=== PATIENT | female | born 1995 | race Caucasian/White ===

== ENCOUNTER → 2018-05-14 | Outpatient (CLI) | payer OTHER ==
--- NOTE | 2018-05-14 15:31 | US ---
EXAMINATION TYPE: US kidneys/renal and bladder DATE OF EXAM: 05/14/2018 COMPARISON: NONE CLINICAL HISTORY: N30.01 Acute cystitis with hematuria. Recent UTI. Pelvic pressure EXAM MEASUREMENTS: Right Kidney: 9.4 x 3.7 x 4.2 cm Left Kidney: 9.7 x 4.7 x 4.2 cm Right Kidney: no evidence of hydronephrosis Left Kidney: no evidence of hydronephrosis Bladder: appears wnl Bilateral Jets seen: yes There is no evidence for hydronephrosis at this point in time. No nephrolithiasis is seen. No mandy s are identified. The urinary bladder is anechoic. Bilateral ureteral jets are seen. IMPRESSION: Renal sizes as described.
--- NOTE | 2018-05-14 15:32 | US ---
EXAMINATION TYPE: US pelvis complete transvag DATE OF EXAM: 05/14/2018 COMPARISON: NONE CLINICAL HISTORY: N30.01 Acute cystitis with hematuria. Recent UTI, pelvic pressure TECHNIQUE: Transvaginal (TV) and Transabdominal (TA) . Transabdominal sonographic images of the pel vis were acquired. Transvaginal sonographic images were medically necessary to better assess the fol lowing anatomy: ovaries Date of LMP: 05/09/18 EXAM MEASUREMENTS: Uterus: 7.3 x 3.6 x 4.1 cm Endometrial Stripe: 0.4 cm Right Ovary: 3.9 x 2.6 x 2.2 cm Left Ovary: 3.5 x 1.9 x 2.5 cm 1. Uterus: Retroverted Nabothian cysts 2. Endometrium: wnl 3. Right Ovary: multiple follicles 4. Left Ovary: multiple follicles 5. Bilateral Adnexa: wnl 6. Posterior cul-de-sac: wnl IMPRESSION: Unremarkable pelvic ultrasound.
== END | disposition home or self-care (01) ==
LOC: RADUSWWP 13:05
PROVIDERS: ATTEND Family Medicine
DX: N30.01 Acute cystitis with hematuria (principal)
CPT/HCPCS: 76770; 76830; 76856

== ENCOUNTER 2018-08-18 00:52 | Emergency (ER) | payer OTHER ==
[2018-08-18 01:46] LABS: Appearance,Urine Clear (Clear); Bilirubin,Urine Negative (Negative); Blood,Urine Negative (Negative); Color,Urine Light Yellow; Glucose,Urine (UA) Negative (Negative); Ketones,Urine Negative (Negative); Leukocyte Esterase,Urine Negative (Negative); Nitrite,Urine Negative (Negative); PH, Urine 6.5 (5.0-8.0); Protein,Urine Negative (Negative); Specific Gravity,Urine 1.004 (1.001-1.035); Urobilinogen,Urine <2.0 mg/dL (<2.0)
[2018-08-18] MEDS ORDERED: FLUCONAZOLE 150 MG TAB PO STA (04:15)
--- NOTE | 2018-08-18 04:18 | ED ---
General Adult HPI - General Chief complaint: Urogenital Stated complaint: Pelvic Pain Time Seen by Provider: 08/18/18 03:18 Source: patient Mode of arrival: ambulatory Limitations: no limitations - History of Present Illness Initial comments: Dictation was produced using [employer] dictation software. please excuse any grammatical, word or spelling errors. Chief complaint: Vaginal pain History of present illness: 22-year-old female presents with vaginal discharge and vaginal pain. Patient 22-year-old female. She states she is had multiple weeks of vaginal discharge and vaginal pain. She is told that she probably has yeast. Patient states that her mother could smell the yeast on her. Patient doesn't have an established QUALITY CONTROL SPECIALIST. No fever, chills or night sweats. The ROS documented in this emergency department record has been reviewed and confirmed by me. Those systems with pertinent positive or negative responses have been documented in the HPI. All other systems are other negative and/or noncontributory. PHYSICAL EXAM: General Impression: Alert and oriented x3, not in acute distress HEENT: Normocephalic atraumatic, extra-ocular movements intact, pupils equal and reactive to light bilaterally, mucous membranes moist. Cardiovascular: Heart regular rate and rhythm, S1&S2 audible, no murmurs, rubs o r gallops Chest: Lungs clear to auscultation bilaterally, no rhonchi, no wheeze, no rales Abdomen: Bowel sounds present, abdomen soft, non-tender, non-distended, no organomegaly Musculoskeletal: Pulses present and equal in all extremities, no peripheral edema Motor: Power 5/5 bilaterally, no focal deficits noted Neurological: CN II-XII grossly intact, no focal motor or sensory deficits noted Skin: Intact with no visualized rashes Psych: Normal affect and mood ED course: 22 yo female with chief complaint of vaginal discharge vaginal pain. Patient has otherwise had good vaginal care. She doesn't douche and use suppositories. All signs upon arrival are within acceptable limits. Patient refusing pelvic exam. She decision-making was plan the patient. Patient given 1 dose of that and for treatment of these. HPI is suggestive of vaginitis. Urinalysis negative. Urine is negative. Patient given prescription for Flagyl to take for BV if she feels sober symptoms aren't improving. Patient understandable agreeable to plan. She is told to follow-up with PCP for outpatient referral to QUALITY CONTROL SPECIALIST. - Related Data Previous Rx's Medication Instructions Recorded metroNIDAZOLE [Flagyl] 500 mg PO Q12H #14 tab 08/18/18 Allergies Allergy/AdvReac Type Severity Reaction Status Date / Time No Known Allergies Allergy Verified 08/18/18 01:27 Review of Systems ROS Statement: Those systems with pertinent positive or pertinent negative responses have been documented in the HPI. ROS Other: All systems not noted in ROS Statement are negative. Past Medical History Past Medical History: No Reported History History of Any Multi-Drug Resistant Organisms: None Reported Past Surgical History: Tonsillectomy Past Psychological History: Anxiety, Depression Smoking Status: Never smoker Past Alcohol Use History: None Reported Past Drug Use History: None Reported General Exam Limitations: no limitations Course Vital Signs 08/18/18 01:18 Temperature 98.4 F Pulse Rate 87 Respiratory 17 Rate Blood Pressure 132/88 O2 Sat by Pulse 97 Oximetry Medical Decision Making - Lab Data Lab Results 08/18/18 08/18/18 Range/Units 01:30 01:30 Urine Color Light Yellow Urine Appearance Clear (Clear) Urine pH 6.5 (5.0-8.0) Ur Specific [place] 1.004 (1.001-1.035) Urine Protein Negative (Negative) Urine Glucose (UA) Negative (Negative) Urine Ketones Negative (Negative) Urine Blood Negative (Negative) Urine Nitrite Negative (Negative) Urine Bilirubin Negative (Negative) Urine Urobilinogen <2.0 (<2.0) mg/dL Ur Leukocyte Esterase Negative (Negative) Urine HCG, Qual Not Detected (Not Detectd) Disposition Clinical Impression: Pelvic pain Disposition: HOME SELF-CARE Condition: Good Instructions (If sedation given, give patient instructions): Vaginitis (ED) Prescriptions: metroNIDAZOLE [Flagyl] 500 mg PO Q12H #14 tab Is patient prescribed a controlled substance at d/c from ED?: No Referrals: Chan Koch DO [Primary Care Provider] - 1-2 days Time of Disposition: 04:17
[2018-08-18 04:25] VITALS: BP 137/91; PULSE 83; RESP 16; TEMP 98.2
== END 2018-08-18 04:23 ==
LOC: EC 00:52
DX: R10.2 Pelvic and perineal pain (principal); N89.8 Other specified noninflammatory disorders of vagina
CPT/HCPCS: 81003; 81025; 99284

== ENCOUNTER 2018-09-05 08:17 | Emergency (ER) | payer OTHER ==
[2018-09-05 08:23] VITALS: BP 159/88; PULSE 112; RESP 20; TEMP 98
--- NOTE | 2018-09-05 08:42 | ED ---
Female Urogenital HPI - General Chief complaint: Urogenital Stated complaint: pelvic pain Time Seen by Provider: 09/05/18 08:23 Source: patient, RN notes reviewed Mode of arrival: ambulatory Limitations: no limitations - History of Present Illness Initial comments: 23-year-old female presents emergency Department with chief complaint of vaginal irritation. Patient states she was seen here a few weeks ago and was given Flagyl though she states that she felt this was related to a yeast infection and states that she just took the Diflucan. She did have some relief. She also states that she only took 2 tablets of the Flagyl. Patient states is minimal discharge she does complains more irritation. Patient states she is not sexually active. She has no concern for STDs. Patient has no dysuria no hematuria. Patient had a clean urinalysis emergency department and her PCPs recently. Patient cannot follow-up with BUSINESS SUPPORT LIAISON at this time. Patient states that she tried some lube and states that that helped. - Related Data Home Medications Medication Instructions Recorded Confirmed Cholecalciferol (Vitamin D3) 2,000 unit PO DAILY 09/05/18 09/05/18 [Vitamin D3] L.acidoph,Paracasei, B.lactis 1 cap PO DAILY 09/05/18 09/05/18 [Probiotic] Multivitamins, Thera [Multivitamin 1 tab PO DAILY 09/05/18 09/05/18 (formulary)] [place]-3 Fatty Acids/Fish Oil [Fish 1 cap PO DAILY 09/05/18 09/05/18 Oil 1,000 mg Softgel] Vitamin C/Biotin [Hair, Skin and 1 tab PO DAILY 09/05/18 09/05/18 Nails] Previous Rx's Medication Instructions Recorded metroNIDAZOLE [Flagyl] 500 mg PO TID #21 tab 09/05/18 Allergies Allergy/AdvReac Type Severity Reaction Status Date / Time No Known Allergies Allergy Verified 09/05/18 08:40 Review of Systems ROS Statement: Those systems with pertinent positive or pertinent negative responses have been documented in the HPI. ROS Other: All systems not noted in ROS Statement are negative. Past Medical History Past Medical History: No Reported History History of Any Multi-Drug Resistant Organisms: None Reported Past Surgical History: Tonsillectomy Past Psychological History: Anxiety, Depression Smoking Status: Never smoker Past Alcohol Use History: None Reported Past Drug Use History: None Reported General Exam Limitations: no limitations General appearance: alert, in no apparent distress Head exam: Present: atraumatic, normocephalic, normal inspection Respiratory exam: Present: normal lung sounds bilaterally. Absent: respiratory distress, wheezes, rales, rhonchi, stridor Cardiovascular Exam: Present: regular rate, normal rhythm, normal heart sounds. Absent: systolic murmur, diastolic murmur, rubs, gallop, clicks GI/Abdominal exam: Present: soft, normal bowel sounds. Absent: distended, tenderness, guarding, rebound, rigid External exam: Present: normal external exam Speculum exam: Present: vaginal discharge, cervical discharge, other (Mild erythema of the cervix) Skin exam: Present: warm, dry, intact, normal color. Absent: rash Course Vital Signs 09/05/18 08:20 Temperature 98 F Pulse Rate 112 H Respiratory 20 Rate Blood Pressure 159/88 O2 Sat by Pulse 99 Oximetry Medical Decision Making - Medical Decision Making 23-year-old female presented for vaginal irritation and discharge. Patient had apparently in April which was negative at that time. She has not been sexually active since. Patient is noted have some discharge and mild erythema. Patient did have gonorrhea, chlamydia, Trichomonas and general culture testing. Patient will be given treated for bacterial vaginosis at this time. Disposition Clinical Impression: Bacterial vaginosis Disposition: HOME SELF-CARE Condition: Stable Instructions (If sedation given, give patient instructions): Bacterial Vaginosis (ED) Additional Instructions: Please return to the Emergency Department if symptoms worsen or any other concerns. Prescriptions: metroNIDAZOLE [Flagyl] 500 mg PO TID #21 tab Is patient prescribed a controlled substance at d/c from ED?: No Referrals: Chan Koch DO [Primary Care Provider] - 1-2 days Time of Disposition: 09:15
[2018-09-06 16:03] LABS: N. gonorrhoeae,PCR Negative (Neg,Equiv); Neisseria Source Cervix
[2018-09-06 16:04] LABS: C. trachomatis,PCR Negative (Neg,Equiv); Chlamydia trachomatis Source Cervix
== END 2018-09-05 09:18 | disposition home or self-care (01) ==
LOC: EC 08:17
DX: N76.0 Acute vaginitis (principal); Z79.899 Other long term (current) drug therapy
CPT/HCPCS: 87070; 87205; 87491; 87591; 87808; 99284

== ENCOUNTER 2018-09-18 18:08 | Emergency (ER) | payer OTHER ==
[2018-09-18 18:34] VITALS: TEMP 98.5
[2018-09-18 20:36] LABS: Appearance,Urine Clear (Clear); Bacteria,Urine Rare /hpf; Bilirubin,Urine Negative (Negative); Blood,Urine Trace (Negative); Color,Urine Light Yellow; Glucose,Urine (UA) Negative (Negative); Ketones,Urine Negative (Negative); Leukocyte Esterase,Urine Negative (Negative); Mucus,Urine Rare /hpf; Nitrite,Urine Negative (Negative); PH, Urine 5.5 (5.0-8.0); Protein,Urine Negative (Negative); RBC,Urine 2 /hpf (0-5); Specific Gravity,Urine 1.009 (1.001-1.035); Urobilinogen,Urine <2.0 mg/dL (<2.0); WBC,Urine 1 /hpf (0-5)
[2018-09-18 20:40] LABS: Amphetamine Screen,Urine Not Detected (NotDetected); Barbiturate Screen,Urine Not Detected (NotDetected); Benzodiazepines Screen,Urine Not Detected (NotDetected); Cocaine Screen,Urine Not Detected (NotDetected); Methadone Screen, Urine Not Detected (NotDetected); Opiate Screen,Urine Not Detected (NotDetected); Oxycodone Screen, Urine Not Detected (NotDetected); Phencyclidine Screen,Urine Not Detected (NotDetected); Tricyclic Antidepressant,Urine Not Detected (NotDetected); Urn Cannabinoid Scrn Not Detected (NotDetected)
--- NOTE | 2018-09-18 23:01 | ED ---
Female Urogenital HPI - General Source: patient Mode of arrival: ambulatory Limitations: no limitations - History of Present Illness Last Menstrual Period: 08/29/18 <Berenice Jefferson - Last Filed: 09/19/18 03:19> <Justin Armando - Last Filed: 09/19/18 07:49> - General Chief complaint: Urogenital Stated complaint: Pelvic pain Time Seen by Provider: 09/18/18 19:17 - History of Present Illness Initial comments: 23-year-old female patient presents to the emergency department today for evaluation of inflammation to her genitalia and vaginal discharge. Patient states that she has had symptoms since March. Patient states she has been on multiple rounds of medication for bacterial vaginosis but does not improve her symptoms. Patient states that she has seen both her primary care physician has been evaluated in the emergency department for this. Patient denies being sexually active ever. Patient states that she does have some mild lower abdominal discomfort with this. She denies fever or chills. Denies any hematuria, dysuria, urinary frequency, urinary urgency. Patient does admit that she has had suicidal thoughts and feels that this pain and discomfort is ruining her life. Patient states she did write a suicide note on Sunday but was unable to go through with it. Patient states that she has been having increased depression and anxiety related to her symptoms. Patient denies any recent rash, shortness breath, chest pain, nausea, vomiting, diarrhea, constipation, back pain, numbness, tingling, dizziness, weakness, headache, visual changes, or any other complaints. (Berenice Jefferson) - Related Data Home Medications Medication Instructions Recorded Confirmed Cholecalciferol (Vitamin D3) 2,000 unit PO DAILY 09/05/18 09/18/18 [Vitamin D3] L.acidoph,Paracasei, B.lactis 1 cap PO DAILY 09/05/18 09/18/18 [Probiotic] Multivitamins, Thera [Multivitamin 1 tab PO DAILY 09/05/18 09/18/18 (formulary)] [place]-3 Fatty Acids/Fish Oil [Fish 1 cap PO DAILY 09/05/18 09/18/18 Oil 1,000 mg Softgel] Vitamin C/Biotin [Hair, Skin and 1 tab PO DAILY 09/05/18 09/18/18 Nails] Clindamycin HCl [Cleocin] 300 mg PO BID 09/18/18 09/18/18 Vilazodone HCl [Viibryd] 1 tab PO DAILY 09/18/18 09/18/18 Allergies Allergy/AdvReac Type Severity Reaction Status Date / Time No Known Allergies Allergy Verified 09/18/18 19:33 Review of Systems ROS Other: All systems not noted in ROS Statement are negative. <Berenice Jefferson - Last Filed: 09/19/18 03:19> ROS Other: All systems not noted in ROS Statement are negative. <Justin Armando - Last Filed: 09/19/18 07:49> ROS Statement: Those systems with pertinent positive or pertinent negative responses have been documented in the HPI. Past Medical History Past Medical History: No Reported History History of Any Multi-Drug Resistant Organisms: None Reported Past Surgical History: Tonsillectomy Past Psychological History: Anxiety, Depression Smoking Status: Never smoker Past Alcohol Use History: None Reported Past Drug Use History: None Reported <Berenice Jefferson - Last Filed: 09/19/18 03:19> General Exam Limitations: no limitations General appearance: alert, in no apparent distress, other (Physical well- developed, well-nourished adult female patient in no acute distress. Vital signs upon presentation are temperature 98.5F, pulse 102, respirations 16, blood pressure 123/79, pulse ox 98% on room air.) Eye exam: Present: normal appearance, PERRL, EOMI. Absent: scleral icterus, conjunctival injection, periorbital swelling ENT exam: Present: normal exam, normal oropharynx, mucous membranes moist Respiratory exam: Present: normal lung sounds bilaterally. Absent: respiratory distress, wheezes, rales, rhonchi, stridor Cardiovascular Exam: Present: regular rate, normal rhythm, normal heart sounds. Absent: systolic murmur, diastolic murmur, rubs, gallop, clicks GI/Abdominal exam: Present: soft, normal bowel sounds. Absent: distended, tenderness, guarding, rebound, rigid External exam: Present: normal external exam Speculum exam: Present: vaginal discharge (Small amount of white vaginal discharge). Absent: normal speculum exam, cervical discharge, vaginal bleeding By manual exam: Present: normal by manual exam Back exam: Present: normal inspection. Absent: CVA tenderness (R), CVA tenderness (L) Neurological exam: Present: alert, oriented X3, CN II-XII intact Psychiatric exam: Present: normal affect, normal mood Skin exam: Present: warm, dry, intact, normal color. Absent: rash <Berenice Jefferson - Last Filed: 09/19/18 03:19> Course Vital Signs 09/18/18 09/19/18 18:30 04:00 Temperature 98.5 F Pulse Rate 102 H 92 Respiratory 16 20 Rate Blood Pressure 123/79 128/74 O2 Sat by Pulse 98 98 Oximetry Medical Decision Making - Lab Data Result diagrams: 09/19/18 02:03 09/19/18 02:03 <Berenice Jefferson - Last Filed: 09/19/18 03:19> - Lab Data Result diagrams: 09/19/18 02:03 09/19/18 02:03 <Justin Armando - Last Filed: 09/19/18 07:49> - Medical Decision Making 23-year-old female patient presents to the emergency department today for evaluation of pelvic pain, genital inflammation, and vaginal discharge. Physical examination did reveal soft nontender abdomen. Vaginal exam was performed and showed a small amount of whitish discharge. No odor was noted. No cervical motion tenderness or cervical erythema. Cultures were sent. Patient's exam is unremarkable. Patient also reported feeling suicidal and quite depressed regarding her symptoms. She does admit to suicidal ideation and did write a note on Sunday. [facility] and it is felt that she is showing signs of obsessive- compulsive disorder. She will be transferred to a psychiatric hospital for further evaluation and treatment. She was accepted by [facility]. (Berenice Jefferson) I saw this patient in conjunction with the physician assistant credit manager. I performed independent history and physical exam. Agree with case management. I did see the patient for purpose of complaining clinical certificate (Justin Mendoza) - Lab Data Lab Results 09/18/18 09/18/18 09/18/18 Range/Units 20:15 20:15 20:15 WBC (3.8-10.6) k/uL RBC (3.80-5.40) m/uL Hgb (11.4-16.0) gm/dL Hct (34.0-46.0) % MCV (80.0-100.0) fL MCH (25.0-35.0) pg MCHC (31.0-37.0) g/dL RDW (11.5-15.5) % Plt Count (150-450) k/uL Neutrophils % % Lymphocytes % % Monocytes % % Eosinophils % % Basophils % % Neutrophils # (1.3-7.7) k/uL Lymphocytes # (1.0-4.8) k/uL Monocytes # (0-1.0) k/uL Eosinophils # (0-0.7) k/uL Basophils # (0-0.2) k/uL Sodium (137-145) mmol/L Potassium (3.5-5.1) mmol/L Chloride (98-107) mmol/L Carbon Dioxide (22-30) mmol/L Anion Gap mmol/L BUN (7-17) mg/dL Creatinine (0.52-1.04) mg/dL Est GFR (CKD-EPI)AfAm (>60 ml/min/1.73 sqM) Est GFR (CKD-EPI)NonAf (>60 ml/min/1.73 sqM) Glucose (74-99) mg/dL Calcium (8.4-10.2) mg/dL Total Bilirubin (0.2-1.3) mg/dL AST (14-36) U/L ALT (9-52) U/L Alkaline Phosphatase (38-126) U/L Total Protein (6.3-8.2) g/dL Albumin (3.5-5.0) g/dL Urine Color Light Yellow Urine Appearance Clear (Clear) Urine pH 5.5 (5.0-8.0) Ur Specific [place] 1.009 (1.001-1.035) Urine Protein Negative (Negative) Urine Glucose (UA) Negative (Negative) Urine Ketones Negative (Negative) Urine Blood Trace H (Negative) Urine Nitrite Negative (Negative) Urine Bilirubin Negative (Negative) Urine Urobilinogen <2.0 (<2.0) mg/dL Ur Leukocyte Esterase Negative (Negative) Urine RBC 2 (0-5) /hpf Urine WBC 1 (0-5) /hpf Urine Bacteria Rare H (None) /hpf Urine Mucus Rare H (None) /hpf Urine HCG, Qual Not Detected (Not Detectd) Stool Occult Blood (Negative) Urine Opiates Screen Not Detected (NotDetected) Ur Oxycodone Screen Not Detected (NotDetected) Urine Methadone Screen Not Detected (NotDetected) Ur Propoxyphene Screen Not Detected (NotDetected) Ur Barbiturates Screen Not Detected (NotDetected) U Tricyclic Antidepress Not Detected (NotDetected) Ur Phencyclidine Scrn Not Detected (NotDetected) Ur Amphetamines Screen Not Detected (NotDetected) U Methamphetamines Scrn Not Detected (NotDetected) U Benzodiazepines Scrn Not Detected (NotDetected) Urine Cocaine Screen Not Detected (NotDetected) U Marijuana (THC) Screen Not Detected (NotDetected) Trichomonas Ag (Rapid) Negative (Negative) 09/18/18 09/19/18 09/19/18 Range/Units 20:15 02:03 02:03 WBC 10.7 H (3.8-10.6) k/uL RBC 5.12 (3.80-5.40) m/uL Hgb 15.1 (11.4-16.0) gm/dL Hct 45.6 (34.0-46.0) % MCV 89.2 (80.0-100.0) fL MCH 29.5 (25.0-35.0) pg MCHC 33.1 (31.0-37.0) g/dL RDW 13.4 (11.5-15.5) % Plt Count 473 H (150-450) k/uL Neutrophils % 64 % Lymphocytes % 28 % Monocytes % 5 % Eosinophils % 2 % Basophils % 0 % Neutrophils # 6.8 (1.3-7.7) k/uL Lymphocytes # 3.0 (1.0-4.8) k/uL Monocytes # 0.6 (0-1.0) k/uL Eosinophils # 0.2 (0-0.7) k/uL Basophils # 0.0 (0-0.2) k/uL Sodium 140 (137-145) mmol/L Potassium 4.0 (3.5-5.1) mmol/L Chloride 105 (98-107) mmol/L Carbon Dioxide 27 (22-30) mmol/L Anion Gap 8 mmol/L BUN 12 (7-17) mg/dL Creatinine 1.02 (0.52-1.04) mg/dL Est GFR (CKD-EPI)AfAm 89 (>60 ml/min/1.73 sqM) Est GFR (CKD-EPI)NonAf 77 (>60 ml/min/1.73 sqM) Glucose 98 (74-99) mg/dL Calcium 9.8 (8.4-10.2) mg/dL Total Bilirubin 0.4 (0.2-1.3) mg/dL AST 17 (14-36) U/L ALT 30 (9-52) U/L Alkaline Phosphatase 71 (38-126) U/L Total Protein 6.7 (6.3-8.2) g/dL Albumin 4.1 (3.5-5.0) g/dL Urine Color Urine Appearance (Clear) Urine pH (5.0-8.0) Ur Specific [place] (1.001-1.035) Urine Protein (Negative) Urine Glucose (UA) (Negative) Urine Ketones (Negative) Urine Blood (Negative) Urine Nitrite (Negative) Urine Bilirubin (Negative) Urine Urobilinogen (<2.0) mg/dL Ur Leukocyte Esterase (Negative) Urine RBC (0-5) /hpf Urine WBC (0-5) /hpf Urine Bacteria (None) /hpf Urine Mucus (None) /hpf Urine HCG, Qual (Not Detectd) Stool Occult Blood Negative (Negative) Urine Opiates Screen (NotDetected) Ur Oxycodone Screen (NotDetected) Urine Methadone Screen (NotDetected) Ur Propoxyphene Screen (NotDetected) Ur Barbiturates Screen (NotDetected) U Tricyclic Antidepress (NotDetected) Ur Phencyclidine Scrn (NotDetected) Ur Amphetamines Screen (NotDetected) U Methamphetamines Scrn (NotDetected) U Benzodiazepines Scrn (NotDetected) Urine Cocaine Screen (NotDetected) U Marijuana (THC) Screen (NotDetected) Trichomonas Ag (Rapid) (Negative) Disposition - Out of Hospital Transfer - Req. Specs Out of Hospital Transfer - Requested Specifics: Psychiatric Non-ICU ([facility]) <Berenice Jefferson - Last Filed: 09/19/18 03:19> <Justin Armando - Last Filed: 09/19/18 07:49> Clinical Impression: Pelvic pain, Obsessive behavior, Suicidal ideation Disposition: TRANSFER TO PSYCH HOSP/UNIT Condition: Serious Referrals: Chan Koch DO [Primary Care Provider] - 1-2 days
[2018-09-19 02:16] LABS: Basophils % (A) 0 %; Eosinophils # (A) 0.2 k/uL (0-0.7); Eosinophils % (A) 2 %; HCT 45.6 % (34.0-46.0); HGB 15.1 gm/dL (11.4-16.0); Lymphocytes % (A) 28 %; MCH 29.5 pg (25.0-35.0); MCHC 33.1 g/dL (31.0-37.0); MCV 89.2 fL (80.0-100.0); Mean Platelet Volume 8.2; Monocytes # (A) 0.6 k/uL (0-1.0); Monocytes % (A) 5 %; Neutrophils # (A) 6.8 k/uL (1.3-7.7); Neutrophils % (A) 64 %; Platelet Count 473 k/uL (150-450); RBC 5.12 m/uL (3.80-5.40); RDW 13.4 % (11.5-15.5); WBC 10.7 k/uL (3.8-10.6)
[2018-09-19 02:22] LABS: Albumin 4.1 g/dL (3.5-5.0); Calcium 9.8 mg/dL (8.4-10.2); Total Bilirubin 0.4 mg/dL (0.2-1.3); Total Protein 6.7 g/dL (6.3-8.2)
[2018-09-19 05:12] VITALS: BP 128/74; PULSE 92; RESP 20
[2018-09-20 14:26] LABS: C. trachomatis,PCR Negative (Neg,Equiv); Chlamydia trachomatis Source Vagina
[2018-09-20 14:35] LABS: N. gonorrhoeae,PCR Negative (Neg,Equiv); Neisseria Source Vagina
== END 2018-09-19 04:41 ==
LOC: EC 18:08
DX: R46.81 Obsessive-compulsive behavior (principal); R45.851 Suicidal ideations; R10.2 Pelvic and perineal pain; F32.9 Major depressive disorder, single episode, unspecified; N89.8 Other specified noninflammatory disorders of vagina; Z32.02 Encounter for pregnancy test, result negative; Z87.42 Personal history of other diseases of the female genital tract; Z79.899 Other long term (current) drug therapy
CPT/HCPCS: 36415; 80053; 80306; 81001; 81025; 82075; 82272; 85025; 87070; 87205; 87491; 87591; 87808; 99285

== ENCOUNTER → 2018-10-04 | Outpatient (CLI) | payer OTHER ==
--- NOTE | 2018-10-04 15:29 | US ---
EXAMINATION TYPE: US pelvis complete transvag DATE OF EXAM: 10/04/2018 COMPARISON: US CLINICAL HISTORY: N76.1 Subacute and chronic vaginitis; Pelvic tension per patient TECHNIQUE: Transvaginal (TV) and Transabdominal (TA) . Transabdominal sonographic images of the pel vis were acquired. Transvaginal sonographic images were medically necessary to better assess the fol lowing anatomy: cervix per patient's request to do TV US for cervicitis and vaginitis Date of LMP: approximately 1 month ago EXAM MEASUREMENTS: Uterus: 6.5 x 5.1 x 3.3 cm Endometrial Stripe: 0.8 cm Right Ovary: 6.2 x 4.5 x 5.5 cm Left Ovary: 3.0 x 2.9 x 1.5 cm 1. Uterus: Retroverted on TV US; multiple Nabothian Cysts in cervix with largest = 0.5 x 0.4 x 0.4c m; oval hypoechoic mass seen in left lower myometrium suggests uterine fibroid = 0.5 x 0.4 x 0.3cm. 2. Endometrium: thickness wnl for 3 to 4 weeks from prior LMP 3. Right Ovary: enlarged ovary; complex ovarian cyst = 4.8 x 3.6 x 4.3cm 4. Left Ovary: multiple small follicles and appears wnl. Spectral, color and waveform Doppler imaging shows good arterial and venous flow within the ovaries ; there is no evidence for ovarian torsion. 5. Bilateral Adnexa: small amount of free fluid seen medial to right ovary = 2.7 x 1.4 x 2.1 x 0.523 = 4.2ml and is wnl as is less than10.0ml. 6. Posterior cul-de-sac: wnl IMPRESSION: 1. Complex cyst right ovary. 2. Moderately prominent free fluid within the pelvis and right adnexal region. Workup for neoplasm is recommended.
== END | disposition home or self-care (01) ==
LOC: RADUSWWP 13:12
PROVIDERS: ATTEND Family Medicine
DX: N83.291 Other ovarian cyst, right side (principal)
CPT/HCPCS: 76830; 76856

== ENCOUNTER → 2018-10-08 | Outpatient (CLI) | payer OTHER ==
[2018-10-08 15:06] VITALS: BP 140/82; PULSE 76; RESP 18; TEMP 97.4; BMI 33.2
--- NOTE | 2018-10-08 17:34 | P.HPOB ---
History of Present Illness H&P Date: 10/08/18 Chief Complaint: Intermittent pelvic discomfort and vaginal discharge since March 2018. This is a 23-year-old G0 with an LMP of 09/02/18. She states she has never been sexually active. She believes her problems started around March 2018 when she tried to douche with a hand-held shower head she thinks she may have pushed things up into the uterus. She was treated for UTI and pelvic pressure at that time. Symptoms did improve until around June of this year when she started having pelvic muscle tightness in vaginal inflammation and pressure. She has had various genital symptoms over the past few months including yellow vaginal discharge, vaginal burning and muscle tightening in abdomen and pelvis. She was seen in the emergency room on 08/18/2018 for discharge and was treated for bacterial vaginosis with Flagyl. She was again diagnosed with bacterial vagi nosis on 09/05/2018 when she was again seen at the emergency room and, again was treated with Flagyl. During the last 2 weeks she has a slight vaginal discharge which was white and watery with slight chunkiness. She states that had a slightly sweet bad smell. She had some urinary urgency and was tested by her primary care physician. She was treated with Zithromax for some of her symptoms and this seemed to help slightly. She states she has had intermittent pelvic and abdominal pressure which seems to be bilateral in nature. At times the pain has gotten up to 8 out of 10, but more recently has been 4 out of 10. She states cold packs to the abdomen seem to help. She had a pelvic ultrasound on 10/04/2018 which showed a complex right to ovarian cysts measuring 4.8 x 3.6 x 4.3 cm. She states she had a Pap smear done in May 2018 at her primary care doctors office. Review of Systems The patient's weight has been stable over the last year. She denies respiratory, cardiac, or G.I. problems. 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 She denies any sexual activity. Menses are regular every month lasting 3 to 4 days. Menarche was at age 9. History of Any Multi-Drug Resistant Organisms: None Reported Past Surgical History: Tonsillectomy Additional Past Surgical History / Comment(s): Tabor teeth extracted. Past Psychological History: Anxiety, Depression Smoking Status: Never smoker Past Alcohol Use History: None Reported Past Drug Use History: None Reported Additional History: She is single and is not sexually active. 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 - Past Family History Sister(s) Family Medical History: Diabetes Mellitus Additional Family Medical History / Comment(s): Type I diabetes. Twin sister has PCOS. Mother Additional Family Medical History / Comment(s): PCOS Father Family Medical History: Diabetes Mellitus Additional Family Medical History / Comment(s): Type II diabetes. Grandpa had colon cancer and grandmother had bladder cancer. Medications and Allergies Home Medications Medication Instructions Recorded Confirmed Type Cholecalciferol (Vitamin D3) 2,000 unit PO DAILY 09/05/18 10/08/18 History [Vitamin D3] L.acidoph,Paracasei, B.lactis 1 cap PO DAILY 09/05/18 10/08/18 History [Probiotic] Multivitamins, Thera [Multivitamin 1 tab PO DAILY 09/05/18 10/08/18 History (formulary)] [place]-3 Fatty Acids/Fish Oil [Fish 1 cap PO DAILY 09/05/18 10/08/18 History Oil 1,000 mg Softgel] Vitamin C/Biotin [Hair, Skin and 1 tab PO DAILY 09/05/18 10/08/18 History Nails] Vilazodone HCl [Viibryd] 1 tab PO DAILY 09/18/18 10/08/18 History Cyclobenzaprine [Flexeril] 5 mg PO TID 10/08/18 10/08/18 History predniSONE 10 mg PO DAILY 10/08/18 10/08/18 History Allergies Allergy/AdvReac Type Severity Reaction Status Date / Time No Known Allergies Allergy Verified 10/08/18 14:58 Exam Vital Signs Temp Pulse Resp BP Pulse Ox 10/08/18 15:01 97.4 F L 76 18 140/82 98 Intake and Output 10/08/18 10/08/18 10/08/18 06:59 14:59 22:59 Other: Weight 93.44 kg Height 5'6", weight 206 pounds, BMI 33.2. This is a well-developed well-nourished heavyset white female who is alert and oriented times 3 in no acute distress. HEENT: Within normal limits. NECK: Supple without mass or thyromegaly. CHEST AND LUNGS: Clear to auscultation. HEART: Regular rate and rhythm. BACK: Negative for CVA tenderness. ABDOMEN: Soft, obese, nontender, without palpable masses. PELVIC EXAM: Normal external genitalia. Introitus is not virginal. Cervix and vagina appear normal with us a small amount of mucus which is considered within normal limits. There is no odor. There is no unusual discharge. There is no cervical motion tenderness. There is no evidence of prolapse. The uterus is midposition, nongravid size and nontender. There are no palpable adnexal masses or tenderness. RECTAL EXAM: deferred EXTREMITIES: Nontender. Saline wet mount is negative for trichomonas and clue cells. There are rare white blood cells. IMPRESSION: 1. 23 year old female with various gynecologic symptoms over the past 6 months. Symptoms include intermittent discharge and pelvic tension and discomfort without any significant physical findings at this time. Differential diagnosis will include treated bacterial vaginosis, discomfort from her ovarian cyst, ruptured ovarian cyst, and less likely, some type of sexually transmitted infection. 2. 4.8 cm complex right ovarian cyst. Differential diagnosis will include hemorrhagic cyst, and endometrioma, and less likely ovarian neoplasm or abscess. PLAN: 1. Pap smear was deferred since she states she had a Pap smear done in May 2018. 2. GC and Chlamydia testing from the cervix has been obtained. 3. The patient will keep a menstrual and symptom calendar. 4. Conservative management for her pelvic discomfort. If this is related to her ovarian cysts, I believe this will improve if the ovarian cyst resolves. Advil or Aleve as directed PRN. 5. Repeat pelvic ultrasound in approximately 2 months. The order slip was given to the patient for this. 6. I have advised the patient to avoid douching or inserting things into the vagina such as chlorinated water, soap or saliva. 7. STD prevention was discussed including limiting sexual partners during her lifetime and condom use if she is sexually active. 8.She will also return in one year for her well woman exam and PRN.
== END ==
LOC: WWCWWP 14:21
PROVIDERS: ATTEND Obstetrics & Gynecology
DX: Z53.9 Procedure and treatment not carried out, unspecified reason (principal)

== ENCOUNTER → 2019-03-24 | Day surgery (SDC) | payer OTHER ==
[2019-03-21 11:45] VITALS: BMI 33.5
[~2019-03-24] MED LIST: LACTATED RINGERS 1,000 ML IV SCH; LIDOCAINE 1% 20 ML VIAL (10MG/ML) FOR IV START INTRADERMA PRN; LIDOCAINE 1% INJ 10MG/ML (20 ML MDV) ONE; PROPOFOL 10 MG/ML 20 ML VIAL IV ONE
[2019-03-24 09:52] VITALS: TEMP 97.7
[2019-03-24 11:05] VITALS: RESP 16
--- NOTE | 2019-03-24 11:08 | P.PCN ---
Date of Procedure: 03/24/19 Description of Procedure: BRIEF HISTORY: Patient is a 23-year-old, pleasant, female presenting for evaluation of uncontrolled heartburn and GERD. The patient has been on Pepcid therapy with no improvement of her heartburn and is recently been started on omeprazole 20 mg daily. She is presenting for further evaluation with EGD. PROCEDURE PERFORMED: Esophagogastroduodenoscopy with biopsy. PREOPERATIVE DIAGNOSIS: Heartburn, GERD. ESTIMATED BLOOD LOSS: Minimal. IV sedation per anesthesia. PROCEDURE: After informed consent was obtained, the patient was brought into the endoscopy unit. IV sedation was administered by Anesthesia under continuous monitoring. Initially the Olympus GIF-190 video endoscope was inserted into the mouth. Esophagus intubated without any difficulty. It was gradually advanced into the stomach and duodenum and carefully examined. The bulb and the second part of the duodenum appeared normal, with biopsies taken. The scope at this time was withdrawn to the stomach, adequately insufflated with air, and upon careful examination, mucosa of the antrum, body, cardia and the fundus appeared normal, except for areas of linear erythema and punctate erythema noted throughout the antrum and body suggestive of mild gastritis with biopsies taken. The scope was then withdrawn into the esophagus. The GE junction was located at 39 cm from the incisors and biopsied. The esophagus appeared normal. There were no erosions or ulcerations seen and the patient tolerated the procedure well. IMPRESSION: 1. Mild gastritis antrum and body biopsied. 2. Biopsies of the duodenum and GE junction. RECOMMENDATIONS: The findings of this examination were discussed with the patient and her sister. Okay to resume diet. Okay to resume medications. We pathology from biopsies. Follow up in the gastroenterology clinic as previously scheduled.
[2019-03-24 11:25] VITALS: BP 122/73; PULSE 82
== END | disposition home or self-care (01) ==
LOC: ORWHC2ENDO 09:14
PROVIDERS: ATTEND Internal Medicine
DX: K29.50 Unspecified chronic gastritis without bleeding (principal); K21.9 Gastro-esophageal reflux disease without esophagitis; E78.5 Hyperlipidemia, unspecified; K58.9 Irritable bowel syndrome, unspecified; Z79.1 Long term (current) use of non-steroidal anti-inflammatories (NSAID); Z79.899 Other long term (current) drug therapy
CPT/HCPCS: 81025; 88305; 43239; J2001; J2704

== ENCOUNTER → 2021-11-30 | Outpatient (CLI) | payer OTHER ==
--- NOTE | 2021-12-01 08:38 | US ---
EXAMINATION TYPE: US kidneys/renal and bladder DATE OF EXAM: 11/30/2021 COMPARISON: US CLINICAL HISTORY: N20.0 CALCULUS OF KIDNEY. Calculus of kidney. EXAM MEASUREMENTS: Right Kidney: 10.3 x 5.6 x 3.8 cm Left Kidney: 9.9 x 4.8 x 4.9 cm Right Kidney: No hydronephrosis or masses seen Left Kidney: Hyperechoic focus seen upper-mid pole: 0.5 x 0.5 x 0.4 cm. Bladder: Appears anechoic. Not fully distended, limited. Bilateral Jets seen: Yes IMPRESSION: 1. Small nonobstructing left renal stone.
== END | disposition home or self-care (01) ==
LOC: RADUSWWP 16:19
PROVIDERS: ATTEND Family Medicine
DX: N20.0 Calculus of kidney (principal)
CPT/HCPCS: 76770